=== PATIENT | female | born 1990 | race Caucasian/White ===

== ENCOUNTER 2024-03-29 23:33 | Inpatient (IN) ==
[2024-03-30] MEDS: Lactated Ringers 1000 ml BAG 1,000 ML IV ONE (00:50)
[2024-03-30] MEDS: Nalbuphine 10 MG/ML 1 ML VIAL IV PRN (01:05)
[2024-03-30] MEDS ORDERED: Lidocaine 1% VIAL 10 MG/ML 30 ML VIAL INJ PRN (08:23)
[2024-03-30 09:00] LABS: ABS Basophils 0.1 10^3/uL (0.0-0.1); ABS Lymphocytes 2.2 10^3/uL (1.0-4.8); ABS Neutrophils 15.8 10^3/uL (1.5-7.6); Eosinophil % 0.2 %; Hematocrit 36.5 % (35-45); Lymphocyte % 11.4 %; Mean Corpuscular Hemoglobin 28.5 pg (27-33); Mean Corpuscular Volume 86.4 fL (80-97); Mean Platelet Volume 9.2 fL (7.5-11.2); Platelet Count 313 10^3/uL (150-450); Red Blood Count 4.22 10^6/uL (3.63-4.92)
[2024-03-30 09:24] LABS: Urine Benzodiazepine Screen None Detected (None Detect); Urine Cannabinoids Screen None Detected (None Detect); Urine Opiates Screen None Detected (None Detect)
[2024-03-30] MEDS: Lactated Ringers 1000 ml BAG 1,000 ML IV SCH (09:44)
[2024-03-30] MEDS: Phenylephrine 40 mcg/mL 10mL (400mcg) SYRINGE IV PUSH PRN (10:38)
[2024-03-30] MEDS: OBEPIDURAL (200 ML) 200 ML EPIDURAL ONE (10:46)
[2024-03-30] MEDS ORDERED: Sodium Citrate/Citric Acid LIQ 15 ML UDC PO PRN (11:10)
[2024-03-30] MEDS ORDERED: Phenylephrine 40 mcg/mL 10mL (400mcg) SYRINGE IV PUSH PRN (11:10)
[2024-03-30] MEDS: Oxytocin in LR 20,000 MILLI.UNIT/1,000 ML BAG IV SCH ×2 (11:49→22:42)
[2024-03-30] MEDS ORDERED: OBEPIDURAL (200 ML) 200 ML EPIDURAL SCH (12:00)
[2024-03-30 12:06] LABS: Urine Appearance Turbid; Urine Bilirubin Negative (Negative); Urine Blood Negative (Negative); Urine Glucose Trace (Negative); Urine Ketones 1+ (Negative); Urine Nitrite Negative (Negative); Urine Protein Negative (Negative); Urine Specific Gravity 1.013 (1.002-1.030); Urine Urobilinogen Negative (Negative)
[2024-03-30 12:43] LABS: Urine Color Yellow
[2024-03-30] MEDS ORDERED: Bupivacaine 0.25% w/EPI 10 ML SDV ONE (15:46)
[2024-03-30] MEDS ORDERED: ROPIVACAINE 5 MG/ML 30 ML BTL (0.5%) ONE (18:50)
[2024-03-30] MEDS ORDERED: Lactated Ringers 1000 ml BAG 1,000 ML IV SCH (22:00)
[2024-03-31] MEDS: Witch Hazel PAD JAR TOPICAL PRN (01:44)
[2024-03-31] MEDS: Dibucaine 1% OINT 28.35 GM TUBE PR PRN (01:45)
[2024-03-31] MEDS: Lactated Ringers 1000 ml BAG 1,000 ML IV SCH (08:31)
[2024-03-31] MEDS: Lactated Ringers 1000 ml BAG 1,000 ML IV ONE (08:31)
[2024-03-31] MEDS: Lidocaine 1.5% EPI 1:200,000 30 ML SDV ONE (08:32)
[2024-03-31] MEDS: Buffered Lidocaine 1% SYRIN 1 ml INTRADERM ONE (08:32)
[2024-03-31] MEDS: Phenylephrine 40 mcg/mL 10mL (400mcg) SYRINGE ONE (08:32)
[2024-03-31 09:09] LABS: ABS Lymphocytes 2.2 10^3/uL (1.0-4.8); ABS Monocytes 1.4 10^3/uL (0.0-0.9); ABS Neutrophils 13.5 10^3/uL (1.5-7.6); ABS Nucleated RBC 0.01 10^3/ul; Eosinophil % 0.2 %; Hematocrit 30.7 % (35-45); Hemoglobin 10.3 g/dL (11.5-14.3); Lymphocyte % 12.9 %; Mean Corpuscular Hemoglobin 28.8 pg (27-33); Mean Corpuscular Hgb Conc 33.5 g/dL (31-36); Mean Platelet Volume 8.3 fL (7.5-11.2); Nucleated Red Blood Cells % 0.1 %/100WBC (0.0-0.8); Platelet Count 249 10^3/uL (150-450); Red Blood Count 3.57 10^6/uL (3.63-4.92); White Blood Count 17.1 10^3/uL (3.8-11.8)
[2024-04-01 08:24] VITALS: BP 121/79
== END 2024-04-01 13:55 | disposition home or self-care (01) | DRG 806 ==
LOC: MCHOBOUT 23:33 → MCHOB 03-30 08:26
PROVIDERS: ADMIT Midwife; ATTEND Obstetrics & Gynecology